=== PATIENT | male | born 1940 | race Caucasian/White ===

== ENCOUNTER 2019-10-03 05:35 | Day surgery (SDC) | payer MEDICARE, BC ==
[2019-10-02 11:20] LABS: BASOPHILS % (AUTO) 0.8 % (0-1); EOSINOPHILS # (AUTO) 0.1 X10'3 (0-0.9); EOSINOPHILS % (AUTO) 1.4 % (0-6); LYMPHOCYTES # (AUTO) 2.2 X10'3 (1.1-4.8); LYMPHOCYTES % (AUTO) 35.6 % (21-51); MEAN CORPUSCULAR HEMOGLOBIN 32.6 PG (27.0-31.0); MEAN CORPUSCULAR HGB CONC 34.2 g/dL (33.0-36.5); MEAN CORPUSCULAR VOLUME 95.3 FL (78-98); MEAN PLATELET VOLUME 8.1 FL (7.4-10.4); MONOCYTES # (AUTO) 0.5 X10'3 (0-0.9); MONOCYTES % (AUTO) 7.6 % (2-12); NEUTROPHILS # (AUTO) 3.3 X10'3 (1.8-7.7); NEUTROPHILS % (AUTO) 54.6 % (42-75); PRE OP PLATELET COUNT 292 X10'3 (140-440); RED BLOOD COUNT 4.62 X10'6 (4.70-6.10); RED CELL DISTRIBUTION WIDTH 13.5 % (11.5-14.5)
[2019-10-02 11:32] LABS: CLARITY,URINE CLEAR (Clear); COLOR,URINE YELLOW (Yellow); GLUCOSE, URINE NEGATIVE (Neg); KETONES,URINE NEGATIVE (Neg); LEUKOCYTE ESTERASE ,URINE NEGATIVE (Neg); NITRITES, URINE NEGATIVE (Neg); OCCULT BLOOD,URINE NEGATIVE (Neg); PH,URINE 5.5 (4.8-8.0); PROTEIN,URINE NEGATIVE (Neg); UROBILINOGEN,URINE 0.2 E.U/dL (0.2-1.0)
[2019-10-02 11:33] LABS: ALBUMIN 3.4 G/DL (3.4-5.0); ALBUMIN/GLOBULIN RATIO 0.7 (1.1-1.5); ALKALINE PHOSPHATASE 81 IU/L (46-116); BLOOD UREA NITROGEN 19 MG/DL (7-18); BUN/CREATININE RATIO 14.3 (5.4-32.0); CALCIUM 8.6 MG/DL (8.5-10.1); CHLORIDE 104 MMOL/L (99-107); CREATININE 1.33 MG/DL (0.60-1.10); PRE OP ALT 22 U/L (30-65); PRE OP ANION GAP 3 (8-16); PRE OP AST 14 U/L (10-37); PRE OP BILIRUB, TOTAL 0.5 MG/DL (0.0-1.0); PRE OP GLUCOSE 92 MG/DL (70-104); PRE OP POTASSIUM 4.1 MMOL/L (3.4-5.1); PRE OP SODIUM 137 MMOL/L (135-145); TOTAL PROTEIN 8.2 G/DL (6.4-8.2); eGFR 52 ML/MIN
[2019-10-02 11:38] LABS: UA COLLECTION TYPE CLN CATCH MIDSTREAM
[~2019-10-03] VITALS: Ht 177.8 cm; Wt 81.6 kg
[2019-10-03] VITALS (9 sets, daily range): BP systolic 122–165; BP diastolic 39–87
[~2019-10-03 05:35] MED LIST: AMLO1CAP5 PO; cefazolin/dext.iso 2gm/100ml 100 ML IV ONE; famotidine 10mg tablet PO ONE; ringers solution, lacted 1,000 ML IV SCH
[2019-10-03] MEDS ORDERED: LIDOcaine 1% (10mg/ml) 2ml vial ONE (06:14)
[2019-10-03] MEDS ORDERED: ringers solution, lacted 1,000 ML IV SCH (07:43)
[2019-10-03] MEDS ORDERED: ondansetron/PF 4mg/2ml inj IV PRN (07:45)
[2019-10-03] MEDS ORDERED: meperidine/PF 25mg/ml syringe IV PRN ×3 (07:45)
[2019-10-03] MEDS ORDERED: morphine 4 MG/ML inj SYRINge IV PRN ×2 (07:45)
[2019-10-03] MEDS ORDERED: proCHLORperazine 10 MG/2 ml inj IV PRN (07:45)
[2019-10-03] MEDS ORDERED: BUPIVAcaine/PF 2.5 mg/ml (0.25%) 30ml vial ONE (09:12)
[2019-10-03] MEDS ORDERED: LIDOcaine 1% 30ml preserv. free vial ONE (09:12)
[2019-10-03] MEDS ORDERED: sevoflurane 250ml liquid IH ONE (09:32)
[2019-10-03] MEDS ORDERED: ondansetron/PF 4mg/2ml inj ONE (09:32)
[2019-10-03] MEDS ORDERED: dexamethasone sod phosphate 10mg/ml inj ONE (09:32)
[2019-10-03] MEDS ORDERED: midazolam 2 mg/2 ml injection ONE (09:36)
[2019-10-03] MEDS ORDERED: fentaNYL/PF 50MCG/1 ML 2ML syringe ONE (09:36)
[2019-10-03] MEDS ORDERED: propofol inj 20 ML IV ONE (09:50)
[2019-10-03] MEDS ORDERED: LIDOcaine 2% (20mg/ml) 5ml vial ONE (09:50)
--- NOTE | 2019-10-03 10:33 | NUR ---
Received from OR via [facility], accompanied by Anesthesiologist Trip and report given by Anesthesiolgist. Pt with oral airway present very sleep but all VS stable O2 sats 100% with O2 mask at 10L. 20G to left forearm with LR IVF 100cc/hr. MARION drain to surgical site right axillary present with serosang drainage and some minimal drainage to dressing. All distal pulses palpable.
[2019-10-03] MEDS ORDERED: traMADol 50MG tablet PO ONE (11:20)
--- NOTE | 2019-10-03 12:03 | NUR ---
Pt discharged to vehicle without incident. Both he and state understanding of discharge information. I gave extensive education on how to change MARION site dressing, empty JOP, record output and monitor for changes. Pt knows what to look for and they will call MD office on Tuesday to report output and have drain removed. Pt IV DC'd, pain meds already called into pharmacy by MD office. All belongings with patient. Pt ate voided ambulate and drank fluids without incident.
== END 2019-10-03 12:03 | disposition home or self-care (01) ==
LOC: PAS 05:35
PROVIDERS: ATTEND Surgery
DX: R22.9 Localized swelling, mass and lump, unspecified (principal); C77.3 Secondary and unspecified malignant neoplasm of axilla and upper limb lymph nodes; K21.9 Gastro-esophageal reflux disease without esophagitis; I10 Essential (primary) hypertension; Z79.899 Other long term (current) drug therapy; Z85.46 Personal history of malignant neoplasm of prostate; Z85.820 Personal history of malignant melanoma of skin; Z98.890 Other specified postprocedural states
CPT/HCPCS: 36415; 38500; 80053; 81003; 82948; 85025; 93005; J1100; J2001; J2250; J2405; J2704; J3010; J3490; J7120; 88307; 88341; 88342; A4215; A4618; A7000

== ENCOUNTER 2020-07-25 06:45 | Day surgery (SDC) | payer MEDICARE, BC ==
[~2020-07-25] VITALS: Ht 175.3 cm; Wt 82.8 kg
[2020-07-25] VITALS (8 sets, daily range): BP systolic 111–123; BP diastolic 56–72
[~2020-07-25 06:45] MED LIST changes: -cefazolin/dext.iso 2gm/100ml 100 ML IV ONE; -famotidine 10mg tablet PO ONE; -ringers solution, lacted 1,000 ML IV SCH
[2020-07-25] MEDS ORDERED: normal saline 1000ml 1,000 ML IV SCH ×2 (07:05→11:15)
[2020-07-25] MEDS ORDERED: BACL-11 PO (08:16)
[2020-07-25] MEDS ORDERED: MULT-1141 PO (08:19)
[2020-07-25] MEDS ORDERED: PEMB100V IV (08:22)
[2020-07-25] MEDS ORDERED: ceFAZolin 1GM/D5W- ADD-VANTAGE 50 ML IV ONE (08:30)
[2020-07-25 08:36] LABS: BASOPHILS % (AUTO) 0.5 % (0-1); EOSINOPHILS # (AUTO) 0.1 X10'3 (0-0.9); EOSINOPHILS % (AUTO) 1.9 % (0-6); HEMATOCRIT 37.8 % (42.0-52.0); HEMOGLOBIN 12.8 g/dl (14.0-17.9); LYMPHOCYTES % (AUTO) 26.7 % (21-51); MEAN CORPUSCULAR HEMOGLOBIN 33.7 PG (27.0-31.0); MEAN CORPUSCULAR HGB CONC 33.9 g/dL (33.0-36.5); MEAN CORPUSCULAR VOLUME 99.3 FL (78-98); MEAN PLATELET VOLUME 7.1 FL (7.4-10.4); MONOCYTES # (AUTO) 0.4 X10'3 (0-0.9); MONOCYTES % (AUTO) 10.7 % (2-12); NEUTROPHILS # (AUTO) 2.3 X10'3 (1.8-7.7); NEUTROPHILS % (AUTO) 60.2 % (42-75); PLATELET COUNT 258 X10'3 (140-440); RED BLOOD COUNT 3.81 X10'6 (4.70-6.10); RED CELL DISTRIBUTION WIDTH 14.1 % (11.5-14.5); WHITE BLOOD COUNT 3.9 X10'3 (4.5-11.0)
[2020-07-25] MEDS ORDERED: diphenhydrAMINE 50 mg/ml inj ONE (08:44)
[2020-07-25] MEDS ORDERED: LIDOcaine 1%/PF 5ML 10 MG/ML VIAL ONE (08:44)
[2020-07-25] MEDS ORDERED: iohexol 300 MG/1 ML 50ml polymer ONE (08:44)
[2020-07-25] MEDS ORDERED: midazolam 2 mg/2 ml injection ONE ×2 (08:44→09:25)
[2020-07-25] MEDS ORDERED: fentaNYL/PF 50MCG/1 ML 2ML syringe ONE ×2 (08:45→09:25)
[2020-07-25] MEDS ORDERED: morphine 4 MG/ML inj SYRINge IV PRN (11:15)
[2020-07-25] MEDS ORDERED: HYDROcodone/acetaminophen 5mg/325mg tablet PO PRN (11:15)
== END 2020-07-25 12:15 | disposition home or self-care (01) ==
LOC: SSTAY O 06:45
PROVIDERS: ATTEND Radiology Vascular & Interventional Radiology
PROC: 0QS03ZZ Reposition Lumbar Vertebra, Percutaneous Approach (ICD-10-PCS; principal; 2020-07-25)
PROC: 0QU03JZ Supplement Lumbar Vertebra with Synthetic Substitute, Percutaneous Approach (ICD-10-PCS; 2020-07-25)
PROC: 0QB03ZX Excision of Lumbar Vertebra, Percutaneous Approach, Diagnostic (ICD-10-PCS; 2020-07-25)
DX: M80.88XA Other osteoporosis with current pathological fracture, vertebra(e), initial encounter for fracture (principal); M54.5 Low back pain; I10 Essential (primary) hypertension; Z20.828 Contact with and (suspected) exposure to other viral communicable diseases; Z85.46 Personal history of malignant neoplasm of prostate; Z85.828 Personal history of other malignant neoplasm of skin; Z98.890 Other specified postprocedural states; Z79.899 Other long term (current) drug therapy; W18.39XA Other fall on same level, initial encounter; Y93.H3 Activity, building and construction; Y92.014 Private driveway to single-family (private) house as the place of occurrence of the external cause
CPT/HCPCS: 22514; 36415; 85025; 85610; 87635; 99152; 99153; C1713; C9803; J1200; J2250; J3010; Q9967; 88305; 88311; 88342